=== PATIENT | female | born 1955 | race Caucasian/White ===

== ENCOUNTER 2024-05-04 18:23 | Inpatient (IN) | payer MEDICARE, OTHER ==
[2024-05-04] MEDS ORDERED: Magnesium 2 GM/50 ML BAG (IN WATER) ONE (18:56)
[2024-05-04] MEDS ORDERED: methylPREDNISolone Sod Succ/PF 125 MG/2 ML VIAL ONE (18:56)
[2024-05-04] MEDS ORDERED: Albuterol 2.5 MG (0.5 mL) NEB ONE ×2 (18:56→20:48)
[2024-05-04] MEDS ORDERED: Ipratropium/Albuterol 3 ML NEB ONE (18:56)
[2024-05-04 19:14] LABS: #Basophils 0.04 10x3/uL (0.0-0.2); %Basophils 0.9 % (0.0-1.0); %Eosinophils 1.8 % (0.0-10.0); %Lymphocytes 36.8 % (21.0-51.0); %Monocytes 12.3 % (0.0-10.0); %Neutrophils 47.5 % (42.0-75.0); Hematocrit 40.3 % (36.0-47.0); Hemoglobin 13.3 g/dL (12.0-16.0); Mean Corpuscular Hemoglobin 28.9 pg (27.0-31.0); Mean Corpuscular Volume 87.6 fL (78.0-98.0); Mean Platelet Volume 10.4 fL (7.4-10.4); Platelet Count 131 10x3/uL (130-400); RBC Distribution Width 13.5 % (11.5-14.5)
[2024-05-04 19:42] LABS: ALT (SGPT) 18 U/L (8-55); AST (SGOT) 26 U/L (5-34); Albumin 3.8 g/dL (3.4-4.8); Alkaline Phosphatase 53 U/L (40-110); Anion Gap 13 mmol/L (10-20); BUN (Urea Nitrogen) 14 mg/dL (9.8-20.1); Bilirubin, Total 0.4 mg/dL (0.2-1.2); Calc. Creatinine Clearance 0 mL/min (70-130); Calcium 8.5 mg/dL (7.8-10.44); Carbon Dioxide 26 mmol/L (23-31); Chloride 105 mmol/L (98-107); Estimated GFR 96; Globulin 3.2 g/dL (2.4-3.5); Glucose 98 mg/dL (83-110); Potassium 3.8 mmol/L (3.5-5.1); Sodium 140 mmol/L (136-145)
[2024-05-04] MEDS ORDERED: Sodium Chloride For Inhalation 0.9% 3 ML NEB ONE (20:49)
[2024-05-04] MEDS ORDERED: cefTRIAXone (ROCEPHIN) 2 GM VIAL ONE (22:16)
[2024-05-04] MEDS ORDERED: Sodium Chloride 0.9% 100 ML ONE (22:16)
[2024-05-04] MEDS ORDERED: Azithromycin 500 MG VIAL ONE (22:27)
[2024-05-04] MEDS ORDERED: Senokot S 8.6-50 MG TAB PO PRN (23:54)
[2024-05-04] MEDS ORDERED: traMADol HCl 50 MG TAB PO PRN (23:54)
[2024-05-04] MEDS ORDERED: Ondansetron ODT 4 MG TAB PO PRN (23:54)
[2024-05-04] MEDS ORDERED: Ipratropium/Albuterol 3 ML NEB EZPAP PRN (23:57)
[2024-05-05] MEDS: Benzonatate 100 MG CAP PO PRN (00:38)
[2024-05-05 00:59] VITALS: BMI 23.1
[2024-05-05 04:18] LABS: #Basophils Less than 0.03 10x3/uL (0.0-0.2); #Eosinophils Less than 0.03 10x3/uL (0.0-0.7); %Basophils 0.3 % (0.0-1.0); %Lymphocytes 14.8 % (21.0-51.0); %Monocytes 3.8 % (0.0-10.0); %Neutrophils 80.2 % (42.0-75.0); Hematocrit 36.1 % (36.0-47.0); Hemoglobin 11.7 g/dL (12.0-16.0); Mean Corpuscular HGB CONC 32.4 g/dL (32.0-36.0); Mean Corpuscular Hemoglobin 28.7 pg (27.0-31.0); Mean Corpuscular Volume 88.7 fL (78.0-98.0); Mean Platelet Volume 10.2 fL (7.4-10.4); Platelet Count 109 10x3/uL (130-400); RBC Distribution Width 13.6 % (11.5-14.5); Red Blood Cell (RBC) Count 4.07 mill/uL (4.20-5.40)
[2024-05-05 04:39] LABS: Anion Gap 11 mmol/L (10-20); BUN (Urea Nitrogen) 9 mg/dL (9.8-20.1); Calc. Creatinine Clearance 71 mL/min (70-130); Calcium 7.8 mg/dL (7.8-10.44); Carbon Dioxide 22 mmol/L (23-31); Chloride 110 mmol/L (98-107); Estimated GFR 100; Glucose 151 mg/dL (83-110); Potassium 3.7 mmol/L (3.5-5.1); Sodium 139 mmol/L (136-145)
[2024-05-05] MEDS ORDERED: methylPREDNISolone Sod Succ/PF 125 MG/2 ML VIAL IVP SCH (06:00)
[2024-05-05] MEDS: methylPREDNISolone Sod Succ 40 MG VIAL IVP SCH (06:06)
[2024-05-05] MEDS: guaiFENesin ER 600 MG TAB PO SCH (08:23)
[2024-05-05] MEDS: Enoxaparin 40 MG (0.4 mL) SYRINGE SC SCH (08:23)
[2024-05-05] MEDS: FLU (Fluad Triv) TS24-25 (65UP)/MF59C/PF 45 MCG/0.5 ML Syringe IM ONE (08:27)
[2024-05-05] MEDS: SELEXIPAG 1600 MCG PO SCH ×2 (11:43→20:25)
[2024-05-05] MEDS: Acetaminophen 325 MG TAB PO PRN (18:19)
[2024-05-05] MEDS: Azithromycin 500 MG in Sodium Chloride 0.9% 250 ML 250 ML IVPB SCH (20:20)
[2024-05-05] MEDS: cefTRIAXone\\ROCEPHIN 1 GM in Sodium Chloride 0.9% 100 ML IVPB SCH (21:30)
[2024-05-06 05:30] LABS: #Basophils Less than 0.03 10x3/uL (0.0-0.2); #Eosinophils Less than 0.03 10x3/uL (0.0-0.7); %Basophils 0.1 % (0.0-1.0); %Lymphocytes 12.4 % (21.0-51.0); %Monocytes 4.2 % (0.0-10.0); %Neutrophils 82.9 % (42.0-75.0); Hematocrit 36.3 % (36.0-47.0); Mean Corpuscular HGB CONC 33.1 g/dL (32.0-36.0); Mean Corpuscular Hemoglobin 29.1 pg (27.0-31.0); Mean Corpuscular Volume 88.1 fL (78.0-98.0); Platelet Count 119 10x3/uL (130-400); RBC Distribution Width 13.9 % (11.5-14.5); Red Blood Cell (RBC) Count 4.12 mill/uL (4.20-5.40)
[2024-05-06 05:31] LABS: Anion Gap 10 mmol/L (10-20); BUN (Urea Nitrogen) 12 mg/dL (9.8-20.1); Calc. Creatinine Clearance 66 mL/min (70-130); Calcium 8.5 mg/dL (7.8-10.44); Carbon Dioxide 22 mmol/L (23-31); Chloride 112 mmol/L (98-107); Estimated GFR 98; Glucose 125 mg/dL (83-110); Potassium 4.4 mmol/L (3.5-5.1); Sodium 140 mmol/L (136-145)
[2024-05-06] MEDS: Furosemide 20 MG TAB PO SCH (11:05)
[2024-05-06] MEDS: Ipratropium/Albuterol 3 ML NEB EZPAP SCH (15:16)
[2024-05-06] MEDS: Famotidine 20 MG TAB PO SCH (19:52)
[2024-05-06] MEDS: Budesonide 0.5 MG/2 ML NEB INH SCH (20:12)
[2024-05-07 04:26] LABS: #Basophils Less than 0.03 10x3/uL (0.0-0.2); #Eosinophils Less than 0.03 10x3/uL (0.0-0.7); %Basophils 0.1 % (0.0-1.0); %Lymphocytes 12.6 % (21.0-51.0); %Monocytes 5.2 % (0.0-10.0); %Neutrophils 81.4 % (42.0-75.0); Hematocrit 36.9 % (36.0-47.0); Hemoglobin 12.2 g/dL (12.0-16.0); Mean Corpuscular HGB CONC 33.1 g/dL (32.0-36.0); Mean Corpuscular Hemoglobin 29.3 pg (27.0-31.0); Mean Corpuscular Volume 88.5 fL (78.0-98.0); Mean Platelet Volume 10.4 fL (7.4-10.4); Platelet Count 138 10x3/uL (130-400); RBC Distribution Width 13.9 % (11.5-14.5); Red Blood Cell (RBC) Count 4.17 mill/uL (4.20-5.40)
[2024-05-07 04:43] LABS: Anion Gap 10 mmol/L (10-20); BUN (Urea Nitrogen) 22 mg/dL (9.8-20.1); Calc. Creatinine Clearance 60 mL/min (70-130); Calcium 8.3 mg/dL (7.8-10.44); Carbon Dioxide 26 mmol/L (23-31); Chloride 109 mmol/L (98-107); Estimated GFR 96; Glucose 126 mg/dL (83-110); Potassium 3.8 mmol/L (3.5-5.1); Sodium 141 mmol/L (136-145)
[2024-05-07] MEDS: Furosemide 20 MG TAB PO SCH (08:47)
[2024-05-07] MEDS: Enoxaparin 30 MG (0.3 mL) SYRINGE SC SCH (08:47)
[2024-05-07 13:02] VITALS: TEMP 97.5
== END 2024-05-07 15:53 | disposition home or self-care (01) | DRG 189 ==
LOC: ERS 18:23 → IMCU/EMU 23:09
PROVIDERS: ADMIT Family Medicine; ATTEND Internal Medicine
DX: J96.21 Acute and chronic respiratory failure with hypoxia (principal); Q21.10 Atrial septal defect, unspecified; J45.901 Unspecified asthma with (acute) exacerbation; J20.5 Acute bronchitis due to respiratory syncytial virus; I27.20 Pulmonary hypertension, unspecified; Z66 Do not resuscitate; Z88.8 Allergy status to other drugs, medicaments and biological substances; Z79.899 Other long term (current) drug therapy; Z98.891 History of uterine scar from previous surgery; Z99.81 Dependence on supplemental oxygen
CPT/HCPCS: 36415; 71045; 80048; 80053; 83605; 85025; 85379; 87040; 87428; 87633; 93306; 94640; 94760; 96365; 96367; 96375; J0456; J0696; J1650; J2919; J3475; J7050; J7611; J7620; J7626

== ENCOUNTER 2025-01-15 08:05 | Outpatient (CLI) | payer MEDICARE, OTHER | END 2025-01-15 08:06 | disposition home or self-care (01) | LOC: BICMAMMO 08:05 | PROVIDERS: ATTEND Student in an Organized Health Care Education/Training Program | DX: Z12.31 Encounter for screening mammogram for malignant neoplasm of breast (principal); Z78.0 Asymptomatic menopausal state; M81.0 Age-related osteoporosis without current pathological fracture | CPT/HCPCS: 77063; 77067; 77080 ==